=== PATIENT | female | born 1955 | race Caucasian/White ===

== ENCOUNTER 2024-03-19 | Emergency (ER) | payer OTHER ==
[~2024-03-19] VITALS: Ht 162.6 cm; Wt 74.4 kg
[~2024-03-19] MED LIST: GABAPENTIN800 MG PO; HYDROCHLOROTHIA25 MG PO; INDUR PO; JANUMET XR 50-1 EAC1 PO; LANTUS SOLOSTAR3 ML PO; NORFLEX100 MG PO; PLAVIX75 MG PO; TRAMADOL HCL-AP1 TAB PO; ULTRACET; ULTRAM50 MG PO; VASOTEC10 MG NGT
[2024-03-19] MEDS ORDERED: GLUMETZA500 MG (00:51)
[2024-03-19] MEDS ORDERED: ACETAMINOPHEN 500 MG GEL..CAP PO ONE (00:56)
[2024-03-19] MEDS ORDERED: NIFEDIPINE 10 MG CAPSULE PO ONE (02:07)
[2024-03-19] MEDS ORDERED: hydrOXYzine PAMOATE 25 MG CAPSULE PO STA ×2 (02:33→04:54)
[2024-03-19] MEDS ORDERED: LABETALOL HCL 100 MG/20 ML ML IV PUSH STA ×2 (02:33→04:57)
[2024-03-19] MEDS ORDERED: LABETALOL HCL 100 MG/20 ML ML ONE (02:39)
[2024-03-19] MEDS ORDERED: hydrOXYzine PAMOATE 25 MG CAPSULE PO ONE ×2 (02:39→05:02)
[2024-03-19 03:16] LABS: CALCIUM 9.8 mg/dL (8.5-10.1); CREATININE SERUM 1.21 mg/dL (0.55-1.02); GFR 44.12; POTASSIUM 4.02 mEq/L (3.5-5.1)
[2024-03-19] MEDS ORDERED: INSULIN REGULAR, HUMAN 1,000 UNIT/10 ML UNITS IV STA (04:55)
[2024-03-19] MEDS ORDERED: 0.9 % SODIUM CHLORIDE 500 ML IV ONE (05:00)
[2024-03-19] MEDS ORDERED: VISTARIL25 MG PO (06:40)
== END 2024-03-19 06:48 ==
LOC: ER
PROVIDERS: General Practice
DX: R51.9 Headache, unspecified (principal); I10 Essential (primary) hypertension; F41.9 Anxiety disorder, unspecified; E11.9 Type 2 diabetes mellitus without complications; Z79.84 Long term (current) use of oral hypoglycemic drugs; Z88.1 Allergy status to other antibiotic agents
CPT/HCPCS: 36415; 93005; 96365; 96366; 99282; J1815; J3490 ×2; J7042